=== PATIENT | female | born 1980 | race African-American/Black ===

== ENCOUNTER 2022-02-19 10:09 | Outpatient (CLI) | payer OTHER, SELFPAY ==
[2022-02-19 11:58] LABS: Chloride* 104 mmol/L (96-114); Sodium* 139 mmol/L (135-149)
[2022-02-19 12:01] LABS: Carbon Dioxide* 27 mmol/L (20-32); Cholesterol* 146 mg/dL (90-199); Creatinine* 0.9 mg/dL (0.5-1.5); Estimated Glomerular Filt Rate 83 ml/min
[2022-02-19 12:02] LABS: Blood Urea Nitrogen* 12 mg/dL (5-24); Calcium* 9.1 mg/dL (8.4-10.6); Glucose* 95 mg/dL (60-115); HDL Cholesterol* 51 mg/dL (>=50); LDL Cholesterol Calculated 69 mg/dL (<100); Triglycerides* 131 mg/dL (40-149)
== END 2022-02-19 10:10 | disposition home or self-care (01) ==
PROVIDERS: PCP Family Medicine; Visit Provider Family Medicine
DX: Z01.419 Encounter for gynecological examination (general) (routine) without abnormal findings (principal); I10 Essential (primary) hypertension; Z13.6 Encounter for screening for cardiovascular disorders
CPT/HCPCS: 80048; 80061